=== PATIENT | male | born 1990 | race African-American/Black ===

== ENCOUNTER 2017-05-21 03:35 | Emergency (ER) | payer SELFPAY ==
[~2017-05-21] VITALS: Ht 177.8 cm; Wt 70.0 kg
[2017-05-21] MEDS ORDERED: METHYLPREDNISOLONE SOD SUCC 125 MG/2 ML VIAL IV STA (04:19)
[2017-05-21] MEDS ORDERED: IPRATROPIUM/ALBUTEROL 0.5-3(2.5)MG/3ML NEB HHN ONE ×2 (04:30→05:30)
[2017-05-21] MEDS ORDERED: LEVOFLOXACIN 750MG PREMIX 150 ML IV ONE (04:30)
[2017-05-21] MEDS ORDERED: MAGNESIUM 2 G PREMIX 50 ML IV ONE (04:30)
[2017-05-21] MEDS ORDERED: KETOROLAC 30MG/ML VIAL IV ONE (06:30)
[2017-05-21 07:55] VITALS: BP 122/80
== END 2017-05-21 07:57 | disposition home or self-care (01) ==
LOC: ER 03:35
DX: J45.901 Unspecified asthma with (acute) exacerbation (principal); R03.0 Elevated blood-pressure reading, without diagnosis of hypertension; Z77.22 Contact with and (suspected) exposure to environmental tobacco smoke (acute) (chronic); J20.9 Acute bronchitis, unspecified; T65.221A Toxic effect of tobacco cigarettes, accidental (unintentional), initial encounter; Y92.89 Other specified places as the place of occurrence of the external cause; F12.90 Cannabis use, unspecified, uncomplicated
CPT/HCPCS: 71010; 93005; 94640; 96365; 96367; 96375; 99285; J1885; J1956; J2930; J3475; Z7610; J7620

== ENCOUNTER 2018-01-03 04:09 | Emergency (ER) | payer MEDICAID ==
[~2018-01-03] VITALS: Ht 175.3 cm; Wt 75.0 kg
[2018-01-03] MEDS ORDERED: ALBUTEROL (0.083%) 2.5MG/3ML NEB HHN STA (04:53)
[2018-01-03] MEDS ORDERED: METHYLPREDNISOLONE SOD SUCC 125 MG/2 ML VIAL IV STA (04:53)
[2018-01-03] MEDS ORDERED: IPRATROPIUM BROMIDE (0.02%) 0.5MG/2.5ML NEB HHN STA (04:53)
[2018-01-03] MEDS ORDERED: KETOROLAC 30MG/ML VIAL IV STA (08:50)
[2018-01-03] MEDS ORDERED: SODIUM CHLORIDE 0.9% 1,000 ML IV ONE (08:50)
[2018-01-03 09:06] LABS: HEMATOCRIT. 43.9 % (42.0-52.0); HEMOGLOBIN. 14.7 g/dL (14.0-18.0); MEAN CORPUSCULAR HEMOGLOBIN 28.6 pg (28.0-32.0); MEAN CORPUSCULAR VOLUME 85.1 fL (80.0-94.0); MEAN PLATELET VOLUME 6.7 fl (7.4-10.4); PLATELET 373 x1000/uL (130-400); RED BLOOD CELL COUNT 5.15 mill/uL (4.7-6.1)
[2018-01-03 09:12] LABS: CHLORIDE 103 mEq/L (98-107)
[2018-01-03 09:28] LABS: PLATELET ESTIMATE NORMAL
[2018-01-03 10:30] VITALS: BP 123/77
== END 2018-01-03 11:35 | disposition home or self-care (01) ==
LOC: ER 04:27
DX: J45.901 Unspecified asthma with (acute) exacerbation (principal); R09.89 Other specified symptoms and signs involving the circulatory and respiratory systems; Z87.891 Personal history of nicotine dependence
CPT/HCPCS: 36415; 71045; 80048; 85025; 93005; 94644; 96374; 96375; 99285; J1885; J2930; J7030; J7611; Z7610